=== PATIENT | female | born 1950 | race Caucasian/White ===

== ENCOUNTER 2016-10-24 17:52 | Emergency (ER) | payer BC ==
[2016-10-24] MEDS ORDERED: ASPIRIN 325 MG TABLET PO ONE (18:12)
[2016-10-24 18:19] LABS: BASO % 0.6 % (0-6); EOS % 1.4 % (0-6); GRAN % 52.1 % (47-80); HEMATOCRIT 38.1 % (35.0-47.0); HEMOGLOBIN 12.3 gm/dl (11.6-16.0); LYMPH % 36.7 % (16-45); MEAN CELL VOLUME 94.3 fl (81-97); MEAN CORPUSCULAR HEMOGLOBIN 30.4 pg (27-33); MEAN CORPUSCULAR HGB CONC 32.3 g/dl (32-36); MONO % 9.2 % (0-9); PLATELET COUNT 304 K/uL (130-400); RED BLOOD COUNT 4.04 M/uL (3.80-5.40); RED CELL DISTRIBUTION WIDTH 13.7 % (11.5-14.5)
--- NOTE | 2016-10-24 18:22 | Emergency Department Record ---
History of Present Illness - General Chief Complaint: Chest Pain Stated Complaint: CHEST DISCOMFORT Time Seen by Provider: 10/24/16 18:12 Source: Patient Mode of Arrival: Ambulatory - History of Present Illness Initial Comments: Patient states that she began having intermittent non-radiating "sharp" right anterior sternal chest pain, NOT associated with nausea, diaphoresis, SOB, SABAS, palpitations, dizziness or lightheadedness. She states it is made worse by exertion. It also is relieved by burping. She currently has no symptoms, but had CP while walking into our department. She took prilosec earlier without relief. She had a [place] fundal plication about 20 years ago, also a lap giovanni in the past. This morning she took her usual 81 mg aspirin. She has had a stress test in the past, but it was several years ago. She denies DM, htn, chol elevation, FH heart problems, PE, DVT, clotting abnormalities. She is a former smoker, quite [id number]. She denies recent surgeries, long trips (except drove to [place] a month ago), calf pain or swelling. She has sleep apnea and uses CPAP. Onset/Timin -: Hour(s) Onset: Awoke with symptoms, During rest Pain Location: Right chest Pain Radiation: None Quality: Sharp Consistency: Intermittent Improves With: Nothing, Other Worsens With: Exertion, Movement Other Symptoms: Burping - Related Data Home Medications Medication Instructions Recorded Confirmed Last Taken Ascorbic Acid [Vitamin C] 1,000 mg PO DAILY 10/24/16 10/24/16 10/24/16 Aspirin [Aspir-Low] 81 mg PO DAILY 10/24/16 10/24/16 10/24/16 Calcium Carbonate [Calcium] 600 mg PO DAILY 10/24/16 10/24/16 10/24/16 Cholecalciferol (Vitamin D3) 2,000 unit PO DAILY 10/24/16 10/24/16 10/24/16 [Vitamin D3] Cyanocobalamin (Vitamin B-12) 5,000 mcg PO DAILY 10/24/16 10/24/16 10/24/16 [Vitamin B12] Estrogen,Con/M-Progest Acet 1 each PO DAILY 10/24/16 10/24/16 10/24/16 [Prempro 0.3 mg-1.5 mg Tablet] Flaxseed Oil [Flax Seed Oil] 1,000 mg PO DAILY 10/24/16 10/24/16 10/24/16 Fluoxetine HCl [Prozac] 10 mg PO DAILY 10/24/16 10/24/16 10/24/16 Magnesium Oxide [Magnesium] 400 mg PO DAILY 10/24/16 10/24/16 10/24/16 Hollister-3 Fatty Acids [Hollister-3] 1,000 mg PO DAILY 10/24/16 10/24/16 10/24/16 Selenium 200 mcg PO DAILY 10/24/16 10/24/16 10/24/16 Vitamin E 1,000 unit PO DAILY 10/24/16 10/24/16 10/24/16 Allergies Allergy/AdvReac Type Severity Reaction Status Date / Time acetaminophen [From Vicodin] AdvReac Mild NAUSEA AND Verified 05/29/15 15:46 VOMITING codeine phosphate AdvReac Mild NAUSEA AND Verified 05/29/15 15:46 [From Tylenol-Codeine #3] VOMITING hydrocodone bitartrate AdvReac Mild NAUSEA AND Verified 05/29/15 15:46 [From Vicodin] VOMITING propoxyphene HCl AdvReac Mild NAUSEA AND Verified 05/29/15 15:46 [From Darvon] VOMITING Sulfa (Sulfonamide AdvReac Mild NAUSEA AND Verified 05/29/15 15:46 Antibiotics) VOMITING levofloxacin [From Levaquin] AdvReac NAUSEA AND Verified 10/24/16 18:44 VOMITING morphine AdvReac NAUSEA Verified 10/24/16 22:07 Travel Screening - Travel/Exposure Within Last 30 Days Have you traveled within the last 30 days?: Yes Location Detail:: [facility] 10/06/16 - Travel/Exposure Within Last Year Have you traveled outside the [place] in the last year?: No - Additonal Travel Details Have you been exposed to anyone with a communicable illness?: No - Travel Symptoms Symptom Screening: None Review of Systems Reviewed: No additional complaints except as noted below Constitutional: Reports: As per HPI. Denies: Chills, Fever, Malaise, Night sweats, Weakness, Weight change Eyes: Reports: As per HPI. Denies: Eye discharge, Eye pain, Photophobia, Vision change ENT: Reports: As per HPI. Denies: Congestion, Dental pain, Ear pain, Epistaxis , Hearing loss, Throat pain Respiratory: Reports: As per HPI. Denies: Cough, Dyspnea, Hemoptysis, Stridor, Wheezes Cardiovascular: Reports: As per HPI. Denies: Arrhythmia, Chest pain, Dyspnea on exertion, Edema, Murmurs, Orthopnea, Palpitations, Paroxysmal nocturnal dyspnea, Rheumatic Fever, Syncope Endocrine: Reports: As per HPI. Denies: Fatigue, Heat or cold intolerance, Polydipsia, Polyuria Gastrointestinal: Reports: As per HPI. Denies: Abdominal pain, Constipation, Diarrhea, Hematemesis, Hematochezia, Melena, Nausea, Vomiting Genitourinary: Reports: As per HPI. Denies: Abnormal menses, Discharge, Dyspareunia, Dysuria, Frequency, Hematuria, Incontinence, Retention, Urgency Musculoskeletal: Reports: As per HPI. Denies: Arthralgia, Back pain, Gout, Joint swelling, Myalgia, Neck pain Skin: Reports: As per HPI. Denies: Bruising, Change in color, Change in hair/ nails, Lesions, Pruritus, Rash Neurological: Reports: As per HPI. Denies: Abnormal gait, Confusion, Headache, Numbness, Paresthesias, Seizure, Tingling, Tremors, Vertigo, Weakness Psychiatric: Reports: As per HPI. Denies: Anxiety, Auditory hallucinations, Depression, Homicidal thoughts, Suicidal thoughts, Visual hallucinations Hematological/Lymphatic: Reports: As per HPI. Denies: Anemia, Blood Clots, Easy bleeding, Easy bruising, Swollen glands Past Medical History - SOCIAL HISTORY Smoking Status: Former smoker Alcohol Use: None Drug Use: None - RESPIRATORY Hx Respiratory Disorders: Yes Hx Sleep Apnea: Yes Hx of CPAP: Yes - CARDIOVASCULAR Hx Cardio Disorders: No - NEURO Hx Neuro Disorders: No - GI Hx GI Disorders: Yes Hx Hiatal Hernia: Yes (repaired) - Hx Genitourinary Disorders: No - ENDOCRINE Hx Endocrine Disorders: No - MUSCULOSKELETAL Hx Musculoskeletal Disorders: No - PSYCH Hx Psych Problems: No - HEMATOLOGY/ONCOLOGY Hx Hematology/Oncology Disorders: No Family Medical History Any Significant Family History?: No Hx Cancer: Father *Cancer Comment: pancreatic Hx Dementia: Mother Physical Exam - General General Appearance: Alert, Oriented x3, Cooperative, No acute distress - Head Head exam: Normal inspection - Eye Eye exam: Normal appearance, PERRL Pupils: Normal accommodation - ENT ENT exam: Normal exam, Mucous membranes moist, Normal external ear exam, Normal orophraynx, TM's normal bilaterally Ear exam: Normal external inspection. negative: External canal tenderness Nasal Exam: Normal inspection. negative: Discharge, Sinus tenderness Mouth exam: Normal external inspection, Tongue normal Teeth exam: Normal inspection. negative: Dental caries Throat exam: Normal inspection. negative: Tonsillar erythema, Tonsillar exudate - Neck Neck exam: Normal inspection, Full ROM. negative: Tenderness - Respiratory Respiratory exam: Normal lung sounds bilaterally. negative: Chest wall tenderness, Respiratory distress - Cardiovascular Cardiovascular Exam: Regular rate, Normal rhythm, Normal heart sounds - GI/Abdominal GI/Abdominal exam: Soft, Normal bowel sounds. negative: Tenderness - Rectal Rectal exam: Deferred - exam: Deferred - Extremities Extremities exam: Normal inspection, Full ROM, Normal capillary refill. negative: Tenderness - Back Back exam: Reports: Normal inspection, Full ROM. Denies: Muscle spasm, Rash noted, Tenderness - Neurological Neurological exam: Alert, Normal gait, Oriented X3, Reflexes normal - Psychiatric Psychiatric exam: Normal affect, Normal mood - Skin Skin exam: Dry, Intact, Normal color, Warm Course Vital Signs 10/24/16 18:08 Temperature 98.4 F Pulse Rate [ 70 Pulse Ox Probe] Respiratory 16 Rate Blood Pressure 157/74 [Left Arm] Pulse Ox 98 - Reevaluation(s) Reevaluation #1: Patient has had 3 more episodes however they are so brief that they are gone before staff can become aware. Patient going to xray and then will receive a GI cocktail with lido. 10/24/16 19:00 Reevaluation #2: Patient is continuing to get pains that are intermittent and brief but more often. Will try morphine and redraw her at 4 hours. 10/24/16 21:17 Reevaluation #3: Patient agreed to try morphine. While receiving it IV she began to feel nausea with an unpleasant feeling, so nurse stopped the medicine with only around half of it given. Patient is feeling fine and states her symptoms can be tolerated at home. She sleeps very well with her CPAP mask. Labs redrawn and pending. 10/24/16 22:29 10/24/16 22:33 Reevaluation #4: The lab's routine analyzer failed twice when running the repeat troponin. The backup analyzer has different parameters of normal which are 0.00-0.40. The patients repeat result on this different analyzer was < 0.05, or normal. The repeat CKMB was 1.0 on original analyzer BOTH draws. 10/24/16 23:08 Medical Decision Making - Management Options MDM Management: Additional Work-up Planned (e.g. ADM/Transfer/OP Study) (DC home with out patient cardiology workup through PCP.) - Data Complexity MDM Data: Labs Ordered and/or Reviewed (TSH 1.6; 4 hr. repeat cardiac labs CKMB 1.0 both draws,), X-Ray Ordered and/or Reviewed (CXR two view: Negative per radiologist. ), EKG Ordered and/or Reviewed - Lab Data Result diagrams: 10/24/16 18:02 10/24/16 18:02 - EKG Data -: EKG Interpreted by Me EKG: No Acute Changes, Normal EKG (No prior available.) Disposition Disposition: Discharge Clinical Impression: Chest pain with low risk for cardiac etiology Disposition: Home, Self-Care Condition: (1) Good Instructions: Chest Pain (ED), Noncardiac Chest Pain (ED) Additional Instructions: Continue present meds. Home with , rest. Call PCP Thursday for out patient cardiac workup. Forms: Patient Portal Access
[2016-10-24 18:33] LABS: ANION GAP 9.8 (7-16); BLOOD UREA NITROGEN 20 mg/dL (7-17); CARBON DIOXIDE 27.2 mmol/L (22-30); CREATINE PHOSPHOKINASE 64 U/L (30-135); CREATININE 0.9 mg/dL (0.52-1.04); EST GLOMERULAR FILTRATION RATE > 60 ml/min; GLUCOSE,RANDOM 84 mg/dL (70-110)
[2016-10-24 18:34] LABS: D-DIMER 0.4 mg/L FEU (0-0.59); INR 0.95; PARTIAL THROMBOPLASTIN TIME 25.4 SECONDS (24.5-39.1); PROTHROMBIN TIME (PATIENT) 10.7 SECONDS (9.5-12.1)
[2016-10-24 19:03] LABS: CKMB < 1.0 ng/mL (0-4.3); TROPONIN I < 0.012 ng/mL (0.00-0.034)
[2016-10-24] MEDS ORDERED: MAGNESIUM HYDROXIDE/AL HYDROX 30 ML, LIDOCAINE VISC 2% 200 MG PO ONE ×2 (19:03)
[2016-10-24] MEDS ORDERED: 0.9 % SODIUM CHLORIDE 500ML 500 ML IV SCH (19:15)
[2016-10-24] MEDS ORDERED: MORPHINE SULFATE 5 MG/ML PFS IVP ONE (21:19)
[2016-10-24] MEDS ORDERED: ONDANSETRON HCL IV 4 MG/2 ML VIAL IVP ONE (21:19)
[2016-10-24 22:40] LABS: CKMB < 1.0 ng/mL (0-4.3)
[2016-10-24 23:04] LABS: TROPONIN I < 0.050 ng/mL (0.0-0.4)
== END 2016-10-24 23:25 | disposition home or self-care (01) ==
LOC: ER 17:52
DX: R07.89 Other chest pain (principal); Z87.891 Personal history of nicotine dependence
CPT/HCPCS: 99284 ×2; 96374; 96375; 82550; 85025; 85730; 85610; 82553; 84484; 80048; 84443; 85379; 71020; 93005; 93010; J2405; J2270; J7040

== ENCOUNTER 2018-07-13 16:48 | Observation (INO) | payer BC ==
[2018-07-13] MEDS ORDERED: ASPIRIN 81 MG CHEWABLE TABLET PO ONE (17:03)
[2018-07-13 17:10] LABS: BASO % 0.6 % (0-6); EOS % 1.6 % (0-6); GRAN % 43.3 % (47-80); HEMATOCRIT 39.7 % (35.0-47.0); HEMOGLOBIN 12.9 gm/dl (11.6-16.0); LYMPH % 46.6 % (16-45); MEAN CELL VOLUME 94.1 fl (81-97); MEAN CORPUSCULAR HEMOGLOBIN 30.6 pg (27-33); MEAN CORPUSCULAR HGB CONC 32.5 g/dl (32-36); MONO % 7.9 % (0-9); PLATELET COUNT 315 K/uL (130-400); RED BLOOD COUNT 4.22 M/uL (3.80-5.40); RED CELL DISTRIBUTION WIDTH 13.4 % (11.5-14.5); WHITE BLOOD COUNT W/O DIFF 6.3 K/uL (4.2-12.2)
[2018-07-13] MEDS: NITROGLYCERIN 0.4MG SL TABLET #25 BTL SL PRN ×3 (17:20→17:38)
--- NOTE | 2018-07-13 17:22 | Emergency Department Record ---
History of Present Illness - General Chief Complaint: Chest Pain Stated Complaint: CHEST LKPAIN Time Seen by Provider: 07/13/18 16:54 Source: Patient Mode of Arrival: Ambulatory Limitations: No limitations - History of Present Illness Initial Comments: pt got severe heartburn this morning that has continued thru the day. she also has pain in her r jaw and neck. she has never had anything like this before. she tried tums. she has nausea.. MD Complaint: Chest pain Onset/Timin -: Hour(s) Onset: During rest Pain Location: Substernal Pain Radiation: Jaw/teeth Severity: Mild Severity scale (1-10): 3 Quality: Dull Consistency: Intermittent Improves With: Nothing Worsens With: Exertion, Inspiration, Movement Treatments Prior to Arrival: None - Related Data Allergies Allergy/AdvReac Type Severity Reaction Status Date / Time iodine Allergy ANAPHYLAXIS Verified 10/24/16 23:42 acetaminophen [From Vicodin] AdvReac Mild NAUSEA AND Verified 05/29/15 15:46 VOMITING codeine phosphate AdvReac Mild NAUSEA AND Verified 05/29/15 15:46 [From Tylenol-Codeine #3] VOMITING hydrocodone bitartrate AdvReac Mild NAUSEA AND Verified 05/29/15 15:46 [From Vicodin] VOMITING propoxyphene HCl AdvReac Mild NAUSEA AND Verified 05/29/15 15:46 [From Darvon] VOMITING Sulfa (Sulfonamide AdvReac Mild NAUSEA AND Verified 05/29/15 15:46 Antibiotics) VOMITING levofloxacin [From Levaquin] AdvReac NAUSEA AND Verified 10/24/16 18:44 VOMITING morphine AdvReac NAUSEA Verified 10/24/16 22:07 Travel Screening - Travel/Exposure Within Last 30 Days Have you traveled within the last 30 days?: No - Travel/Exposure Within Last Year Have you traveled outside the [place] in the last year?: Yes Location Detail:: [place] - Additonal Travel Details Have you been exposed to anyone with a communicable illness?: No - Travel Symptoms Symptom Screening: None Review of Systems Reviewed: No additional complaints except as noted below Constitutional: Reports: As per HPI. Denies: Chills, Fever, Malaise, Night sweats, Weakness, Weight change Eyes: Reports: As per HPI. Denies: Eye discharge, Eye pain, Photophobia, Vision change ENT: Reports: As per HPI. Denies: Congestion, Dental pain, Ear pain, Epistaxis , Hearing loss, Throat pain Respiratory: Reports: As per HPI. Denies: Cough, Dyspnea, Hemoptysis, Stridor, Wheezes Cardiovascular: Reports: As per HPI. Denies: Arrhythmia, Chest pain, Dyspnea on exertion, Edema, Murmurs, Orthopnea, Palpitations, Paroxysmal nocturnal dyspnea, Rheumatic Fever, Syncope Endocrine: Reports: As per HPI. Denies: Fatigue, Heat or cold intolerance, Polydipsia, Polyuria Gastrointestinal: Reports: As per HPI. Denies: Abdominal pain, Constipation, Diarrhea, Hematemesis, Hematochezia, Melena, Nausea, Vomiting Genitourinary: Reports: As per HPI. Denies: Abnormal menses, Discharge, Dyspareunia, Dysuria, Frequency, Hematuria, Incontinence, Retention, Urgency Musculoskeletal: Reports: As per HPI. Denies: Arthralgia, Back pain, Gout, Joint swelling, Myalgia, Neck pain Skin: Reports: As per HPI. Denies: Bruising, Change in color, Change in hair/ nails, Lesions, Pruritus, Rash Neurological: Reports: As per HPI. Denies: Abnormal gait, Confusion, Headache, Numbness, Paresthesias, Seizure, Tingling, Tremors, Vertigo, Weakness Psychiatric: Reports: As per HPI. Denies: Anxiety, Auditory hallucinations, Depression, Homicidal thoughts, Suicidal thoughts, Visual hallucinations Hematological/Lymphatic: Reports: As per HPI. Denies: Anemia, Blood Clots, Easy bleeding, Easy bruising, Swollen glands Past Medical History - SOCIAL HISTORY Smoking Status: Former smoker - RESPIRATORY Hx Respiratory Disorders: Yes Hx Sleep Apnea: Yes Hx of CPAP: Yes - CARDIOVASCULAR Hx Cardio Disorders: No - NEURO Hx Neuro Disorders: No - GI Hx GI Disorders: Yes Hx Hiatal Hernia: Yes (repaired) - Hx Genitourinary Disorders: No Hx UTI: Yes (2018) - ENDOCRINE Hx Endocrine Disorders: No Hx Diabetes: No Hx Thyroid Disease: No - MUSCULOSKELETAL Hx Musculoskeletal Disorders: No - PSYCH Hx Psych Problems: No - HEMATOLOGY/ONCOLOGY Hx Hematology/Oncology Disorders: No Family Medical History Any Significant Family History?: Yes Hx Cancer: Father *Cancer Comment: pancreatic Hx Dementia: Mother Physical Exam - General General Appearance: Alert, Oriented x3, Cooperative, Mild distress - Head Head exam: Normal inspection - Eye Eye exam: Normal appearance, PERRL, EOMI Pupils: Normal accommodation - ENT ENT exam: Normal exam, Mucous membranes moist, Normal external ear exam, Normal orophraynx Ear exam: Normal external inspection. negative: External canal tenderness Nasal Exam: Normal inspection. negative: Discharge, Sinus tenderness Mouth exam: Normal external inspection, Tongue normal Teeth exam: Normal inspection. negative: Dental caries Throat exam: Normal inspection. negative: Tonsillar erythema, Tonsillar exudate - Neck Neck exam: Normal inspection, Full ROM. negative: Tenderness - Respiratory Respiratory exam: Normal lung sounds bilaterally. negative: Respiratory distress - Cardiovascular Cardiovascular Exam: Regular rate, Normal rhythm, Normal heart sounds - GI/Abdominal GI/Abdominal exam: Soft, Normal bowel sounds. negative: Tenderness - Rectal Rectal exam: Deferred - exam: Deferred - Extremities Extremities exam: Normal inspection, Full ROM, Normal capillary refill. negative: Tenderness - Back Back exam: Reports: Normal inspection, Full ROM. Denies: Muscle spasm, Rash noted, Tenderness - Neurological Neurological exam: Alert, CN II-XII intact, Normal gait, Oriented X3 - Psychiatric Psychiatric exam: Normal affect, Normal mood - Skin Skin exam: Dry, Intact, Normal color, Warm Course Vital Signs 07/13/18 07/13/18 16:49 17:02 Temperature 98.2 F Pulse Rate 65 Blood Pressure 144/80 Pulse Ox 96 Medical Decision Making - Lab Data Result diagrams: 07/13/18 17:00 07/13/18 16:55 Disposition Disposition: Admit Clinical Impression: Chest pain Qualifiers: Chest pain type: unspecified Qualified Code(s): R07.9 - Chest pain, unspecified Disposition: Still a Patient at [facility] Decision to Admit: Admit from ER Decision to Admit Date: 07/13/18 Decision to Admit Time: 18:53 Condition: (1) Good Forms: Patient Portal Access Quality - Quality Measures Quality Measures: N/A - Blood Pressure Screening Does Patient Have Any of the Following: No Blood Pressure Classification: Pre-Hypertensive BP Reading Systolic Measurement: 144 Diastolic Measurement: 80 Screening for High Blood Pressure: < Pre-Hypertensive BP, F/U Documented > [ [id number]] Pre-Hypertensive Follow-up Interventions: Follow-up with rescreen every year.
[2018-07-13 17:24] LABS: BLOOD UREA NITROGEN 21 mg/dL (8-23); CREATININE 0.7 mg/dL (0.5-0.9); EST GLOMERULAR FILTRATION RATE > 60 mL/min
[2018-07-13 17:25] LABS: TOTAL PROTEIN 7.4 g/dL (6.6-8.7)
[2018-07-13 17:27] LABS: GLUCOSE,RANDOM 107 mg/dL (74-109)
[2018-07-13 17:30] LABS: ALB/GLOB RATIO 1.4 (1.1-1.8); ALBUMIN 4.3 g/dL (4.0-5.0); ALKALINE PHOSPHATASE 73 U/L (45-87); ALT/SGPT 15 U/L (<33); AST/SGOT 18 U/L (10.0-35.0); CREATINE PHOSPHOKINASE 75 U/L (26-192)
[2018-07-13 17:32] LABS: CKMB 1.1 ng/mL (<3.77)
[2018-07-13] MEDS ORDERED: MAGNESIUM HYDROXIDE/AL HYDROX 30 ML, LIDOCAINE VISC 2% 15ML 15 ML PO ONE ×2 (17:58)
[2018-07-13] MEDS ORDERED: ONDANSETRON HCL IV 4 MG/2 ML VIAL IVP ONE ×2 (18:48→18:49)
[2018-07-13] MEDS ORDERED: MORPHINE SULFATE 10 MG/ML VIAL IVP ONE (18:48)
[2018-07-13] MEDS ORDERED: HYDROMORPHONE HCL 2 MG/ML VIAL IVP ONE (18:51)
[2018-07-13] MEDS ORDERED: AL HYDROX/MAG HYDROX 30ML UD PO PRN (20:05)
[2018-07-13] MEDS ORDERED: ACETAMINOPHEN 500 MG TABLET PO PRN (20:05)
[2018-07-13] MEDS ORDERED: TEMAZEPAM 15 MG CAPSULE PO PRN (20:05)
--- NOTE | 2018-07-14 05:01 | RADIOLOGY REPORT ---
EXAM: CHEST, TWO VIEWS HISTORY: EPIGASTRIC PAIN AND CHEST PRESSURE. TECHNIQUE: Frontal and lateral views of the chest were obtained. Comparison: 10/24/16. FINDINGS: The cardiac silhouette is normal in size. There is atherosclerotic calcification in the aorta. The pulmonary vasculature is not congested. No focal consolidation, pleural effusion or pneumothorax is seen. IMPRESSION: NO ACUTE CARDIOPULMONARY PROCESS. JOB NUMBER: [id number] [facility]
[2018-07-14] MEDS ORDERED: PANTOPRAZOLE SODIUM 40 MG TABLET PO ONE (09:41)
[2018-07-14] MEDS ORDERED: FLUOXETINE HCL 10 MG CAPSULE PO SCH (10:00)
[2018-07-14] MEDS ORDERED: ASPIRIN 325 MG TAB ENTERIC-COATED PO SCH (10:00)
[2018-07-14] MEDS ORDERED: M PROGEST ACET PO SCH (10:00)
[2018-07-14] MEDS ORDERED: ESTROGEN CON PO SCH (10:00)
--- NOTE | 2018-07-14 11:01 | History & Physical ---
History of Present Illness - Date of Service Date of Service for History & Physical: 07/14/18 - History of Present Illness Admitting Diagnosis: chest pressure History of Present Illness: Judith Hammonds is a 68 y.o. F who presented to the [facility] ED on 07/13/18 with c/o midsternal chest pressure with radiation to right jaw and neck and nausea that started in the morning. In the ED, she reported that she had never experienced pain like this before. Took 2 Rolaids with no effect. Was given Nitro in the ED with no effect as well as a GI Cocktail with some minimal improvement in symptoms. Denies having any cardiac history although does state that she had a stress test that was normal several years ago. Does not smoke and no history of diabetes. Reports that she has had her gallbladder removed and had Jero Fundoplication surgery approximately 20 years ago. Has had several Upper GI scopes over the years. States that she follows with Dr. Sosa and sees him about once per year. Also notes that she was recently diagnosed with Alpha 1 antitrypsin deficiency and that her PCP is also going to have her follow with a lung specialist. CT of Abd 09/2017: Unremarkable Abd U/S 12/2017: Fatty infiltration of liver, otherwise unremarkable PCP: Dr. Zari Corona ED Course: VS: Temp 98.2 HR 62 BP 144/80 Pulse Ox 96% on RA EKG: NSR CXR: Unremarkable D-dimer 0.44, CK-MB 1.1, Trop <0.010, CBC and CMP WNL 07/14/18: Today, pt reports chest discomfort as a 3/10 that comes and goes. States that it is a mid-chest pressure, more than pain and feels like a "big gas bubble". Denies difficulty breathing, palpitations, lower extremity edema or SOB today however does state that she did experience some SOB that was unusual for her on Thursday afternoon while climbing stairs at [employer]. Denies starting any new medications recently or changing her diet. Does not take any medications for acid reflux. Denies difficulty swallowing. No change in bowel movements or bladder function. Is not aware of being around anyone with any illnesses recently however she does state that she has been in and out of of Hospitals recently d/t her son's visits there. Discussed cardiology consult that will take place this afternoon. Possible D/C pending consult. Travel Screening - Travel/Exposure Within Last 30 Days Have you traveled within the last 30 days?: No - Travel/Exposure Within Last Year Have you traveled outside the [place] in the last year?: Yes Location Detail:: [place] - Additonal Travel Details Have you been exposed to anyone with a communicable illness?: Yes Exposure Details:: son in law has mrsa - Travel Symptoms Symptom Screening: None Review of Systems Constitutional: Reports: As per HPI Eyes: Reports: As per HPI ENT: Denies: Throat pain Respiratory: Reports: As per HPI. Denies: Cough, Dyspnea, Hemoptysis, Stridor, Wheezes Cardiovascular: Reports: As per HPI, Chest pain. Denies: Arrhythmia, Dyspnea on exertion, Edema, Murmurs, Orthopnea, Palpitations, Paroxysmal nocturnal dyspnea, Rheumatic Fever, Syncope Endocrine: Reports: As per HPI. Denies: Fatigue Gastrointestinal: Reports: As per HPI, Nausea. Denies: Abdominal pain, Constipation, Diarrhea, Hematemesis, Hematochezia, Melena, Vomiting Genitourinary: Reports: As per HPI. Denies: Abnormal menses, Discharge, Dyspareunia, Dysuria, Frequency, Hematuria, Incontinence, Retention, Urgency Musculoskeletal: Reports: As per HPI. Denies: Back pain Skin: Reports: As per HPI. Denies: Bruising, Change in color, Change in hair/ nails, Lesions, Pruritus, Rash Neurological: Reports: As per HPI. Denies: Abnormal gait, Confusion, Headache, Numbness, Weakness Psychiatric: Reports: As per HPI. Denies: Anxiety, Depression, Visual hallucinations Hematological/Lymphatic: Reports: As per HPI. Denies: Anemia, Blood Clots, Easy bleeding, Easy bruising Past Medical History - SOCIAL HISTORY Smoking Status: Former smoker Alcohol Use: None Drug Use: None - RESPIRATORY Hx Respiratory Disorders: Yes Hx Sleep Apnea: Yes Hx of CPAP: Yes - CARDIOVASCULAR Hx Cardio Disorders: No - NEURO Hx Neuro Disorders: No - GI Hx GI Disorders: Yes Hx Hiatal Hernia: Yes (repaired) - Hx Genitourinary Disorders: No Hx UTI: Yes (2018) - ENDOCRINE Hx Endocrine Disorders: No Hx Diabetes: No Hx Thyroid Disease: No - MUSCULOSKELETAL Hx Musculoskeletal Disorders: No - PSYCH Hx Psych Problems: No - HEMATOLOGY/ONCOLOGY Hx Hematology/Oncology Disorders: No Family Medical History Any Significant Family History?: Yes Hx Cancer: Father *Cancer Comment: pancreatic Hx Dementia: Mother H&P Meds/Allergies - Allergies Allergies: Allergies Allergy/AdvReac Type Severity Reaction Status Date / Time iodine Allergy ANAPHYLAXIS Verified 10/24/16 23:42 acetaminophen [From Vicodin] AdvReac Mild NAUSEA AND Verified 05/29/15 15:46 VOMITING codeine phosphate AdvReac Mild NAUSEA AND Verified 05/29/15 15:46 [From Tylenol-Codeine #3] VOMITING hydrocodone bitartrate AdvReac Mild NAUSEA AND Verified 05/29/15 15:46 [From Vicodin] VOMITING propoxyphene HCl AdvReac Mild NAUSEA AND Verified 05/29/15 15:46 [From Darvon] VOMITING Sulfa (Sulfonamide AdvReac Mild NAUSEA AND Verified 05/29/15 15:46 Antibiotics) VOMITING levofloxacin [From Levaquin] AdvReac NAUSEA AND Verified 10/24/16 18:44 VOMITING morphine AdvReac NAUSEA Verified 10/24/16 22:07 - Active Medications Active Medications: Current Medications Acetaminophen (Tylenol 500mg Tab) 1,000 mg PO Q6H PRN PRN Reason: PAIN - MILD(1-4)/FEVER Al Hydroxide/Mg Hydroxide (Maalox) 30 ml PO Q4H PRN PRN Reason: GI UPSET Aspirin (Ecotrin (Ec)) 325 mg PO DAILY ANSELMO Last Admin: 07/14/18 09:57 Dose: 325 mg Pantoprazole Sodium (Protonix) 40 mg PO NOW ONE Stop: 07/14/18 09:42 Last Admin: 07/14/18 09:57 Dose: 40 mg Temazepam (Restoril) 15 mg PO QHS PRN PRN Reason: INSOMNIA Physical Exam - Vital Signs Vital Signs: Vital Signs - Last 24 Hrs Temp Pulse Pulse Pulse Resp BP BP 07/14/18 09:00 63 07/14/18 06:00 47 L 16 102/57 07/14/18 05:55 49 L 07/13/18 22:00 98.3 F 52 L 17 110/56 07/13/18 20:36 56 L 16 07/13/18 20:05 97.4 F L 55 L 16 108/63 07/13/18 19:50 53 L 105/50 07/13/18 19:12 47 L 20 127/82 07/13/18 18:52 52 L 118/67 07/13/18 18:07 49 L 112/61 07/13/18 17:29 55 L 110/61 07/13/18 17:21 55 L 114/60 07/13/18 17:02 98.2 F 07/13/18 16:49 65 144/80 Pulse Ox 07/14/18 09:00 07/14/18 06:00 97 07/14/18 05:55 98 07/13/18 22:00 96 07/13/18 20:36 07/13/18 20:05 96 07/13/18 19:50 97 07/13/18 19:12 97 07/13/18 18:52 99 07/13/18 18:07 99 07/13/18 17:29 07/13/18 17:21 07/13/18 17:02 07/13/18 16:49 96 - General General Appearance: Alert, Oriented x3, Cooperative, No acute distress Limitations: No limitations - Head Head exam: Normal inspection - Eye Eye exam: Normal appearance, PERRL, EOMI Pupils: Normal accommodation - ENT ENT exam: Normal exam, Mucous membranes moist, Normal external ear exam, Normal orophraynx Ear exam: Normal external inspection. negative: External canal tenderness Nasal Exam: Normal inspection. negative: Discharge, Sinus tenderness Mouth exam: Normal external inspection, Tongue normal Teeth exam: Normal inspection. negative: Dental caries Throat exam: Normal inspection. negative: Tonsillar erythema, Tonsillar exudate - Neck Neck exam: Normal inspection, Full ROM. negative: Tenderness - Respiratory Respiratory exam: Normal lung sounds bilaterally. negative: Accessory muscle use, Chest wall tenderness, Respiratory distress - Cardiovascular Cardiovascular Exam: Regular rate, Normal rhythm, Normal heart sounds Peripheral Pulses: 2+: Dorsalis Pedis (R), Dorsalis Pedis (L) - GI/Abdominal GI/Abdominal exam: Soft, Normal bowel sounds. negative: Distended, Guarding, Organomegaly, Rebound, Rigid, Tenderness - Rectal Rectal exam: Deferred - exam: Deferred - Extremities Extremities exam: Normal inspection, Full ROM, Normal capillary refill. negative: Tenderness - Back Back exam: Reports: Normal inspection, Full ROM. Denies: Muscle spasm, Rash noted, Tenderness - Neurological Neurological exam: Alert, CN II-XII intact, Oriented X3 - Psychiatric Psychiatric exam: Normal affect, Normal mood - Skin Skin exam: Dry, Intact, Normal color, Warm Results - Labs Result Diagrams: 07/13/18 17:00 07/13/18 16:55 Labs Last 24 Hours: Laboratory Results - last 24 hr 07/13/18 07/13/18 07/13/18 16:55 16:55 16:55 WBC RBC Hgb Hct MCV MCH MCHC RDW Plt Count MPV Gran % Lymphocytes % Monocytes % Eosinophils % Basophils % D-Dimer 0.44 Sodium 141 Potassium 4.1 Chloride 102 Carbon Dioxide 25.0 Anion Gap 14.0 BUN 21 Creatinine 0.7 Estimated GFR > 60 Random Glucose 107 Calcium 9.4 Total Bilirubin 0.20 AST 18 ALT 15 Alkaline Phosphatase 73 Creatine Kinase 75 CK-MB (CK-2) 1.1 Troponin T < 0.010 Total Protein 7.4 Albumin 4.3 Globulin 3.1 Albumin/Globulin Ratio 1.4 Triglycerides 173 H Cholesterol 189 LDL Cholesterol Measurd 120.0 H VLDL Cholesterol 34 HDL Cholesterol 50 07/13/18 07/14/18 07/14/18 17:00 00:45 00:45 WBC 6.3 RBC 4.22 Hgb 12.9 Hct 39.7 MCV 94.1 MCH 30.6 MCHC 32.5 RDW 13.4 Plt Count 315 MPV 10.0 Gran % 43.3 L Lymphocytes % 46.6 H Monocytes % 7.9 Eosinophils % 1.6 Basophils % 0.6 D-Dimer Sodium Potassium Chloride Carbon Dioxide Anion Gap BUN Creatinine Estimated GFR Random Glucose Calcium Total Bilirubin AST ALT Alkaline Phosphatase Creatine Kinase CK-MB (CK-2) < 1.0 Troponin T < 0.010 Total Protein Albumin Globulin Albumin/Globulin Ratio Triglycerides Cholesterol LDL Cholesterol Measurd VLDL Cholesterol HDL Cholesterol 07/14/18 07/14/18 09:11 09:11 WBC RBC Hgb Hct MCV MCH MCHC RDW Plt Count MPV Gran % Lymphocytes % Monocytes % Eosinophils % Basophils % D-Dimer Sodium Potassium Chloride Carbon Dioxide Anion Gap BUN Creatinine Estimated GFR Random Glucose Calcium Total Bilirubin AST ALT Alkaline Phosphatase Creatine Kinase CK-MB (CK-2) < 1.0 Troponin T < 0.010 Total Protein Albumin Globulin Albumin/Globulin Ratio Triglycerides Cholesterol LDL Cholesterol Measurd VLDL Cholesterol HDL Cholesterol - Imaging and Cardiology Chest x-ray Status: Report reviewed VTE H&P Assessment - Risk for VTE Risk for VTE: Yes Risk Level: Moderate Risk Assessment Date: 07/14/18 Risk Assessment Time: 11:09 VTE Orders Placed or Will Be Placed: Yes Plan - Detailed Diagnosis and Plan (1) Chest pain Current Visit: Yes Status: Acute Qualifiers: Chest pain type: unspecified Qualified Code(s): R07.9 - Chest pain, unspecified Base Code: R07.9 - CHEST PAIN, UNSPECIFIED Comment: 07/14/18: -Midsternal chest discomfort 08/15 -EKG: NSR -Cardiac Enzymes x 3 negative, last set due @ 1700 -CXR: Unremarkable -Await Cardiology Consult, D/C pending cardiology recommendation (2) History of Jero fundoplication Current Visit: Yes Status: Acute Base Code: Z98.890 - OTHER SPECIFIED POSTPROCEDURAL STATES Comment: 07/14/18: -Follows with Dr. Sosa (GI) -Jero Fundoplication surgery 20 years ago, has had several EGDs since -Consider f/u with Dr. Sosa as outpt depending on cardiology recommendations -Pantoprazole 40mg PO x 1, will consider d/c with 30 day supply if effective (3) DVT prophylaxis Current Visit: Yes Status: Acute Base Code: [id number] - Comment: 07/14/18: -Moderate Risk d/t age -Encourage frequent ambulation -If pt does not d/c today, will consider SCD or prophylactic anticoagulation (4) Full code status Current Visit: Yes Status: Acute Base Code: Z78.9 - OTHER SPECIFIED HEALTH STATUS Comment: 07/14/18: -Full Code this admission
--- NOTE | 2018-07-14 16:59 | Discharge Summary ---
Providers Discharge Summary Date: 07/14/18 Date of admission: 07/13/18 20:02 Attending physician: BEVRELY REGAN Primary care physician: SHAISTA MORROW M.D. Consults: Consult Orders 07/13/18 20:05 Consult NOW Consulting Provider: DAKOTAH DOUGLASS Physician Instructions: Reason For Exam: chest pressure 07/13/18 22:33 Consult - Cardiology NOW Consulting Provider: GONZALES NEWMAN Physician Instructions: Reason For Exam: Chest pain Does pt have current senior java architect?: Unknown Physical Exam - Vital Signs Vital Signs: Vital Signs - Last 24 Hrs Temp Pulse Pulse Pulse Resp BP Pulse Ox 07/14/18 15:00 62 16 124/59 97 07/14/18 11:43 97.2 F L 48 L 16 102/42 97 07/14/18 09:00 63 07/14/18 06:00 47 L 16 102/57 97 07/14/18 05:55 49 L 98 07/13/18 22:00 98.3 F 52 L 17 110/56 96 07/13/18 20:36 56 L 16 07/13/18 20:05 97.4 F L 55 L 16 108/63 96 07/13/18 19:50 53 L 105/50 97 07/13/18 19:12 47 L 20 127/82 97 07/13/18 18:52 52 L 118/67 99 07/13/18 18:07 49 L 112/61 99 07/13/18 17:29 55 L 110/61 07/13/18 17:21 55 L 114/60 07/13/18 17:02 98.2 F - General General Appearance: Alert, Oriented x3, Cooperative, No acute distress Limitations: No limitations - Head Head exam: Normal inspection - Eye Eye exam: Normal appearance, PERRL, EOMI Pupils: Normal accommodation - ENT ENT exam: Normal exam, Mucous membranes moist, Normal external ear exam, Normal orophraynx Ear exam: Normal external inspection. negative: External canal tenderness Nasal Exam: Normal inspection. negative: Discharge, Sinus tenderness Mouth exam: Normal external inspection, Tongue normal Teeth exam: Normal inspection. negative: Dental caries Throat exam: Normal inspection. negative: Tonsillar erythema, Tonsillar exudate - Neck Neck exam: Normal inspection, Full ROM. negative: Tenderness - Respiratory Respiratory exam: Normal lung sounds bilaterally. negative: Accessory muscle use, Chest wall tenderness, Respiratory distress - Cardiovascular Cardiovascular Exam: Regular rate, Normal rhythm, Normal heart sounds Peripheral Pulses: 2+: Dorsalis Pedis (R), Dorsalis Pedis (L) - GI/Abdominal GI/Abdominal exam: Soft, Normal bowel sounds. negative: Distended, Guarding, Organomegaly, Rebound, Rigid, Tenderness - Rectal Rectal exam: Deferred - exam: Deferred - Extremities Extremities exam: Normal inspection, Full ROM, Normal capillary refill. negative: Tenderness - Back Back exam: Reports: Normal inspection, Full ROM. Denies: Muscle spasm, Rash noted, Tenderness - Neurological Neurological exam: Alert, CN II-XII intact, Oriented X3 - Psychiatric Psychiatric exam: Normal affect, Normal mood - Skin Skin exam: Dry, Intact, Normal color, Warm Hospitalization - Hospitalization Admission Diagnosis: chest pressure - Problem List/Discharge Diagnosis (1) Chest pain Status: Acute Discharge Diagnosis: Chest pain type: unspecified Qualified Code(s): R07.9 - Chest pain, unspecified Base Code: R07.9 - CHEST PAIN, UNSPECIFIED Comment: 07/14/18: -Cardiology consulted -Negative Stress Test completed (no ecg evidence for ischemia or arrhythmia) -Midsternal chest discomfort believed to be a gastric etiology -Recommend f/u with Dr. Sosa (GI) as an outpatient (2) History of Jero fundoplication Status: Acute Base Code: Z98.890 - OTHER SPECIFIED POSTPROCEDURAL STATES Comment: 07/14/18: -Follows with Dr. Sosa (GI) -Jero Fundoplication surgery 20 years ago, has had several EGDs since -Pantoprazole 40mg PO dose had minimal effectiveness in reducing chest pressure (3/10 at worst) -Recommend f/u with Dr. Sosa (3) DVT prophylaxis Status: Acute Base Code: [id number] - Comment: 07/14/18: -Moderate Risk d/t age -Encourage frequent ambulation -If pt does not d/c today, will consider SCD or prophylactic anticoagulation (4) Full code status Status: Acute Base Code: Z78.9 - OTHER SPECIFIED HEALTH STATUS Comment: : -Full Code this admission - Hospitalization Course Disposition: Home, Self-Care Procedures: Imaging and X-Rays 07/13/18 18:44 CXR [CHEST 2 VIEWS] [RAD] Stat Cardiology Procedures 07/13/18 16:56 EKG NOW 07/13/18 17:00 Senior Network Architect NOW 07/13/18 20:05 EKG QDX2@0600 07/14/18 12:33 Echo W/CF & Cardiac Doppler NOW 07/14/18 12:47 Cardiolite MPI w/exercise stre NOW 07/14/18 12:52 Stress EKG/STD Treadmill NOW Abnormal Labs: Abnormal Lab Results 07/13/18 07/13/18 Range/Units 16:55 17:00 Gran % 43.3 L (47-80) % Lymphocytes % 46.6 H (16-45) % Triglycerides 173 H (<150) mg/dL LDL Cholesterol Measurd 120.0 H (0-100) mg/dL Condition at Discharge: (1) Good Discharge Medications - Discharge Medications Home Medications: Ambulatory Orders Ascorbic Acid [Vitamin C] 1,000 mg PO DAILY 10/24/16 [Last Taken 07/13/18] Aspirin [Aspir-Low] 81 mg PO DAILY 10/24/16 [Last Taken 07/13/18] Calcium Carbonate [Calcium] 600 mg PO DAILY 10/24/16 [Last Taken 07/13/18] Cholecalciferol (Vitamin D3) [Vitamin D3] 2,000 unit PO DAILY 10/24/16 [Last Taken 07/13/18] Cyanocobalamin (Vitamin B-12) [Vitamin B12] 5,000 mcg PO DAILY 10/24/16 [Last Taken 07/13/18] Estrogen,Con/M-Progest Acet [Prempro 0.3 mg-1.5 mg Tablet] 1 each PO DAILY 10/24 [Last Taken 07/13/18] Flaxseed Oil [Flax Seed Oil] 1,000 mg PO DAILY 10/24/16 [Last Taken 07/13/18] Fluoxetine HCl [Prozac] 10 mg PO DAILY 10/24/16 [Last Taken 07/13/18] Magnesium Oxide [Magnesium] 400 mg PO DAILY 10/24/16 [Last Taken 07/13/18] [place]-3 Fatty Acids [[place]-3] 1,000 mg PO DAILY 10/24/16 [Last Taken 07/13/18] Selenium 200 mcg PO DAILY 10/24/16 [Last Taken 07/13/18] Vitamin E 1,000 unit PO DAILY 10/24/16 [Last Taken 07/13/18] Discharge Plan - Discharge Instructions Activity at Discharge: Resume Usual Activities As Tolerated Instructions: Chest Pain (DC) Additional Instructions: Schedule appointment with Dr. Sosa Quality Measures - Quality Measures Quality Measures: Advance Directives, Documentation of Current Medications in Medical Record, Elder Maltreatment Screen and Follow-Up Plan, Screening for High Blood Pressure and F/U Documented - Current Medications Quality Measure: Measure #130: Documentation of Current Medications Documentation of Current Medications: <Current Medications Documented/Reviewed> [G8463] - Blood Pressure Screening Quality Measure: Screening for High Blood Pressure and Follow-Up Documented Does Patient Have Any of the Following: No Blood Pressure Classification: Pre-Hypertensive BP Reading Systolic Measurement: 144 Diastolic Measurement: 80 Screening for High Blood Pressure: < Pre-Hypertensive BP, F/U Documented > [ G8950] Pre-Hypertensive Follow-up Interventions: Referral to alternative/primary care provider. - Advance Directives Quality Measure: Measure #47: Care Plan Advance Directives Established: Yes Advance Directives Information Provided To Patient: Yes Advance Directives on File: No Living Will: Yes Power of Oncology Specialist: No Power of Oncology Specialist Name: WILLIE ASH Advance Care Planning: <Care Plan/Decision Maker Documented; Discussed & Documented> [[id number]] - Elder Abuse Suspicion Index Screening: Elder Abuse Suspicion Index Screening Rely on people for bathing, dressing, shopping, banking, etc: No Prevented from getting food, clothes, medication, etc: No Made to feel shamed or threatened by someone: No Forced to sign papers or use money against will: No Feel afraid, touched in ways not wanted or hurt physically: No Poor eye contact, withdrawn, malnourished, cuts or bruises: No Screening Result: Negative result EASI Reference Information: Hannah SMITH, Leona C, Marko D, Marko M.Development and validation of a tool to assist physicians identification of elder abuse: The Elder Abuse Suspicion Index (EASI ). Journal of Elder Abuse and Neglect, 2008; 20 (3): 276-300. - Elder Maltreatment Screen Quality Measures: Elder Maltreatment Screen and Follow-Up Plan Elder Maltreatment Screen: <Negative, No Follow-Up Plan Required> [G8734]
--- NOTE | 2018-07-14 18:34 | Medical Records Consult ---
DATE OF CONSULTATION: 07/14/18 REASON FOR CONSULTATION: CHEST PAIN. HISTORY: Miss Hammonds is 68 years old, who presented to [facility] on 07/13/2018 with substernal chest pressure radiating to the right jaw and neck. She states she has substernal chest pressure while at rest. It lasted approximately one and a half hours in duration. Her initial belief it was due to significant heartburn but her family requested she present to [facility]. Her initial ECG demonstrates sinus rhythm with no significant ST /T changes. Troponins have been negative x2. She has no history of diabetes mellitus, coronary artery disease, hypertension, hyperlipidemia, or tobacco abuse. Her medical history is significant for Jero fundoplication and hernia repair. She follows up with Dr. Sosa, Gastroenterology, once yearly. PAST MEDICAL HISTORY: Gastroesophageal reflux disease. PAST SURGICAL HISTORY: Jero fundoplication. Ventral hernia repair. MEDICATIONS INCLUDE: Aspirin 81 mg daily. ALLERGIES: GADOLINIUM CAUSING ANAPHYLAXIS. CODEINE AND HYDROCODONE CAUSING NAUSEA AND VOMITING. SULFA CAUSING NAUSEA AND VOMITING. LEVOFLOXACIN CAUSING NAUSEA AND VOMITING. SOCIAL HISTORY: She denies tobacco or alcohol use. She is currently . FAMILY HISTORY: No significant family history of coronary artery disease. PHYSICAL EXAM: VITAL SIGNS: She is afebrile. Vital signs are stable. LUNGS: Clear to auscultation. CARDIAC EXAM: Normal. ABDOMEN: Obese. EXTREMITIES: No edema. VASCULAR: Normal carotid upstroke without bruit. LABORATORY: White count 6.3, hemoglobin is 12.9, platelets 315,000, sodium 141, potassium 4.1, BUN 21, creatinine 0.7, blood sugar 107, troponin negative x2, total cholesterol is 189, triglycerides 173, LDL 120, HDL 50. IMPRESSION/PLAN: Miss Hammonds has atypical chest pain that is likely gastric etiology. She has a significant history of Jero fundoplication. At this time, we will plan on ordering a baseline echocardiogram and treadmill stress test. If both of these tests are within normal limits, she can be discharged for outpatient follow-up with Dr. Sosa. JOB NUMBER: [id number] MTDD
--- NOTE | 2018-07-14 18:44 | Stress Test Report ---
DATE OF TEST: 07/14/18 Ms. Hammonds is 68 years old, who underwent a treadmill stress test for atypical chest pain. Resting heart rate is 75 beats per minute and blood pressure is 115/79. ECG demonstrates sinus rhythm with normal axis and intervals. She exercised for 9 per the Eduardo protocol. She completed 10.5 METs of activity without any significant cardiac complaints. Her peak blood pressure was 211/74, which is a hypertensive response. Continuous ECG monitoring demonstrated no evidence for ischemia or arrhythmia. FINAL IMPRESSION: 1. MAXIMAL EDUARDO STRESS COMPLETING 10.5 METS OF ACTIVITY WITH NO ECG EVIDENCE FOR ISCHEMIA OR ARRHYTHMIA. 2. HYPERTENSIVE RESPONSE TO EXERCISE. 3. GOOD PHYSICAL FITNESS FOR AGE. 4. ATYPICAL CHEST PAIN LIKELY GASTRIC IN ETIOLOGY. JOB NUMBER: [id number] MTDD
== END 2018-07-14 17:25 | disposition home or self-care (01) ==
LOC: ER 16:48 → MEDSURG 20:02
PROVIDERS: ADMIT Internal Medicine; ATTEND Internal Medicine
DX: R07.9 Chest pain, unspecified (principal); R11.0 Nausea; R68.84 Jaw pain; R12 Heartburn; G47.33 Obstructive sleep apnea (adult) (pediatric); Z98.890 Other specified postprocedural states; Z87.891 Personal history of nicotine dependence
CPT/HCPCS: 71046; 80053; 80061; 82550; 82553; 84484; 85025; 85379; 93005; 93010; 93017; 93306; 94760; 96374; 96375; 99220; 99285; J2405

== ENCOUNTER 2018-10-18 07:56 | Day surgery (SDC) | payer BC ==
[2018-10-18] MEDS ORDERED: LIDOCAINE 2% MDV (20MG/ML) 20ML VIAL IV ONE (07:57)
[2018-10-18] MEDS ORDERED: PROPOFOL 10 MG/ML VIAL IV ONE (07:57)
[2018-10-18] MEDS ORDERED: FENTANYL PF 100MCG/2ML VIAL IV ONE (07:57)
--- NOTE | 2018-10-19 08:30 | Operative Note ---
OPERATION: ESOPHAGOGASTRODUODENOSCOPY with multiple biopsies. INDICATION: Recurring epigastric pain. The patient does have a prior history of fundoplication. Upper endoscopy is performed at this time for further evaluation. Clinically, she states she is feeling a little better. ANESTHESIA: Intravenous sedation was administered by the department of anesthesiology and included Diprivan titrated to effect. PROCEDURE: Following informed consent from this alert individual, including a discussion of the risks and benefits of the procedure and an opportunity for the patient to ask questions, the patient was in the left lateral decubitus position. The Olympus [id number] video endoscope was inserted into the esophagus without resistance. The proximal esophagus had a normal appearance with normal folds and distensibility. The mid and distal esophagus likewise was free from changes. The squamocolumnar junction approximated the diaphragmatic hiatus and was smooth and well defined. The stomach was entered. The gastric fundus and pars media had a normal appearance, with normal folds and distensibility. The antrum evaluated circumferentially, however, demonstrated multiple superficial ulcerations circumferentially about the antrum. The pylorus was patent. The duodenal bulb, sweep and descending duodenum demonstrated some mild patchy erythema without ulcerations or erosions noted. The endoscope was then withdrawn back into the body of the stomach. Retroflexion accomplished following air insufflation failed to demonstrate any additional changes. The endoscope was then straightened. Multiple biopsies were taken from the stomach to assess for Helicobacter pylori and check histology. After biopsy, the endoscope was then drawn back through a normal esophagus and removed from the patient. She tolerated the procedure well and was returned to the recovery area in stable condition. IMPRESSION: 1. Ulcerative antral gastritis. Biopsies taken from throughout the stomach. 2. Mild duodenitis. 3. Status post fundoplication seen in retroflexion. RECOMMENDATION: The patient was advised to start Prilosec 40 mg daily. She should have recheck endoscopy in 8-10 weeks' time to assess for ulcer healing. Further recommendations may be forthcoming pending results of pathology. Followup will be with Zari Corona as well. As always, thank you for allowing me to participate in the care of your patient. CC: MD CHRIS Tamayo
== END 2018-10-18 09:39 | disposition home or self-care (01) ==
LOC: HOP 07:56
PROVIDERS: ATTEND Internal Medicine Gastroenterology
DX: R10.13 Epigastric pain (principal); K29.60 Other gastritis without bleeding; K29.80 Duodenitis without bleeding; Z98.890 Other specified postprocedural states

== ENCOUNTER 2018-12-13 12:36 | Day surgery (SDC) | payer BC ==
[2018-12-13] MEDS ORDERED: PROPOFOL 10 MG/ML VIAL IV ONE (12:37)
[2018-12-13] MEDS ORDERED: LIDOCAINE 2% MDV (20MG/ML) 20ML VIAL IV ONE (12:37)
[2018-12-13] MEDS ORDERED: FENTANYL PF 100MCG/2ML VIAL IV ONE (12:37)
--- NOTE | 2018-12-15 13:40 | Operative Note ---
OPERATION: ESOPHAGOGASTRODUODENOSCOPY. INDICATION: Previously noted gastric antral ulcerations. The patient returns at this time after treatment to assess healing. ANESTHESIA: Intravenous sedation was administered by the department of anesthesiology and included Diprivan titrated to effect. PROCEDURE: Following informed consent from this alert individual, including a discussion of the risks and benefits of the procedure and an opportunity for the patient to ask questions, the patient was in the left lateral decubitus position. The Olympus [id number] video endoscope was inserted into the esophagus without resistance. The proximal esophagus had a normal appearance with normal folds and distensibility. The posterior pharynx noted prior to entering the esophagus demonstrated some punctate areas of ulceration although this was not perfectly clear. The esophagus, as mentioned, in its entirety was endoscopically normal. The stomach was entered and found to be unremarkable except for the previously noted fundoplication. The previously seen antral gastric ulcerations had completely healed. The pylorus was symmetrical and patent. The duodenal bulb, sweep, and descending duodenum were examined in a serial fashion and found to be normal. The instrument was then withdrawn back into the body of the stomach where retroflexion accomplished following air insufflation again demonstrated fundoplication which appeared healthy. There were diminutive fundal gland polyps noted as well. The endoscope was straightened and removed. The patient tolerated the procedure well and was returned to the recovery area in stable condition. IMPRESSION: 1. Healed gastric antral ulcerations. 2. Fundoplication. 3. Tiny fundal gland polyps. RECOMMENDATION: The patient was advised to try Pepcid twice daily in place of the Prilosec to hopefully prevent a recurrence. She will otherwise follow up with Zari Corona MD. As always, thank you for allowing me to participate in the care of your patient. CHRIS
== END 2018-12-13 14:50 | disposition home or self-care (01) ==
LOC: HOP 12:36
PROVIDERS: ATTEND Internal Medicine Gastroenterology
DX: Z09 Encounter for follow-up examination after completed treatment for conditions other than malignant neoplasm (principal); Z87.19 Personal history of other diseases of the digestive system; Z98.890 Other specified postprocedural states; K31.7 Polyp of stomach and duodenum